=== PATIENT | female | born 1960 | race Caucasian/White ===

== ENCOUNTER 2019-05-05 12:10 | Emergency (ER) | payer OTHER ==
[~2019-05-05] VITALS: Ht 170.2 cm; Wt 59.0 kg
[2019-05-05 12:17] VITALS: BP 130/105
[2019-05-05] MEDS ORDERED: ONDANSETRON 4 MG ODT PO ONE (12:25)
[2019-05-05] MEDS ORDERED: MORPHINE SULFATE 4 MG/ML SYR IM ONE (12:25)
[2019-05-05 13:55] VITALS: BP 145/58
== END 2019-05-05 13:55 | disposition home or self-care (01) ==
LOC: MED 12:10
DX: S42.291A Other displaced fracture of upper end of right humerus, initial encounter for closed fracture (principal); F17.210 Nicotine dependence, cigarettes, uncomplicated; I10 Essential (primary) hypertension; E78.00 Pure hypercholesterolemia, unspecified; G89.29 Other chronic pain; Y93.89 Activity, other specified; Y92.89 Other specified places as the place of occurrence of the external cause; Y99.8 Other external cause status
CPT/HCPCS: 71045; 73060; 96372; 99284; J2270; Q0162